=== PATIENT | male | born 1950 | race Caucasian/White ===

== ENCOUNTER 2017-01-20 11:59 | Emergency (ER) | payer OTHER, MEDICARE ==
[2017-01-20 12:29] LABS: PH,URINE 6.5 (5.0 - 9.0); URINE BILIRUBIN NEGATIVE (NEGATIVE); URINE BLOOD NEGATIVE (NEGATIVE); URINE GLUCOSE (UA) NORMAL (NORMAL); URINE KETONE TRACE (NEGATIVE); URINE LEUKOCYTE ESTERASE TRACE (NEGATIVE); URINE NITRATE NEGATIVE (NEGATIVE); URINE PROTEIN 1+ (NEGATIVE)
[2017-01-20 12:38] LABS: URINE BACTERIA FEW (NONE SEEN); URINE FINE GRANULAR CAST 0-2 /[HPF] (NONE SEEN); URINE HYALINE CAST 0-2 /[HPF] (0-1/hpf); URINE RBC RARE /[HPF] (0-2); URINE SQUAMOUS EPITHELIAL CELL 0-10 /[HPF] (NONE SEEN); URINE WBC 0-5 /[HPF] (0-3)
[2017-01-20 12:39] LABS: URINE MUCUS 2+
[2017-01-20 13:25] LABS: BASO % 0.1 % (0.2-1.2); EOS % 0.1 % (0.8-7.0); GRAN # 14.1 10_X3_uL (1.8-5.4); GRAN % 89.7 % (34.0-67.9); HEMATOCRIT 44.5 % (40-51); HEMOGLOBIN 15.5 g/dL (13.7-17.5); LYMPH # 0.9 10_X3_uL (1.3-3.6); LYMPH % 5.5 % (21.8-53.1); MEAN CORPUSCULAR HEMOGLOBIN 30.7 pg (27.0-33.0); MEAN CORPUSCULAR HGB CONC 34.8 g/dL (32.0-36.0); MEAN CORPUSCULAR VOLUME 88.1 fL (79-92); MEAN PLATELET VOLUME 10.1 fl (7.5-11.5); MONO # 0.7 10_X3_uL (0.3-0.8); MONO % 4.6 % (5.3-12.2); PLATELET COUNT 296 x10_3/uL (163-337); RED BLOOD COUNT 5.05 x10_6/uL (4.6-6.1); RED CELL DISTRIBUTION WIDTH 13.7 % (11.6-14.4); WHITE BLOOD COUNT 15.7 x10_3/uL (4.2-9.1)
[2017-01-20 13:39] LABS: ALBUMIN 4.6 gm/dL (3.4-5.0); ALKALINE PHOSPHATASE 74 U/L (50-136); ALT/SGPT 23 U/L (7.53-40.17); AST/SGOT 22 U/L (6.66-35.34); BILIRUBIN,TOTAL 0.57 mg/dL (0.0-1.0); BLOOD UREA NITROGEN 16 mg/dL (7-18); CALCIUM 9.7 mg/dL (8.7-10.7); CARBON DIOXIDE 26 mmol/L (21-32); CREATINE KINASE 71 U/L (35-232); CREATININE 0.8 mg/dL (0.6-1.3); GLUCOSE,RANDOM 128 mg/dL (70-99); POTASSIUM 4.3 mmol/L (3.5-5.1); SODIUM 140 mmol/L (136-145); TOTAL PROTEIN 8.1 gm/dL (6.4-8.2)
== END 2017-01-20 14:31 | disposition home or self-care (01) ==
LOC: ER 11:59
PROVIDERS: Emergency Medicine
DX: R19.7 Diarrhea, unspecified (principal); J06.9 Acute upper respiratory infection, unspecified; R11.0 Nausea; K21.9 Gastro-esophageal reflux disease without esophagitis; I25.2 Old myocardial infarction; Z95.1 Presence of aortocoronary bypass graft; Z79.899 Other long term (current) drug therapy
CPT/HCPCS: 36415; 80053; 81001; 82550; 82553; 85025; 99283